=== PATIENT | female | born 1975 | race Caucasian/White ===

== ENCOUNTER 2021-04-05 11:00 | Inpatient (IN) | payer MEDICAID ==
[2021-04-05] VITALS (13 sets, daily range): BP systolic 100–155; BP diastolic 59–98
[~2021-04-05] VITALS: Ht 162.6 cm; Wt 91.2 kg
[2021-04-05] MEDS ORDERED: dextrose 50%-water 50ml dispensing syringe IV PRN ×2 (14:15→14:30)
[2021-04-05] MEDS ORDERED: thiamine 100mg/ml 2ml inj. IV ONE ×2 (14:15→14:30)
[2021-04-05] MEDS ORDERED: Neutra Phos packet PO PRN (14:30)
[2021-04-05] MEDS ORDERED: magnesium 2GM in 50ml NS 50 ML IV PRN (14:30)
[2021-04-05] MEDS ORDERED: magnesium 4gm in 100ml NS 100 ML IV PRN (14:30)
[2021-04-05] MEDS: K, MAG and/or Phos replacement - Verify level? MC SCH (14:30)
[2021-04-05] MEDS ORDERED: sodium phosphate inj. 15 MMOL in dextrose 5%-water 250 ML IV PRN (14:30)
[2021-04-05] MEDS ORDERED: haloperidol lactate 5mg/ml inj IM PRN ×2 (14:30)
[2021-04-05] MEDS ORDERED: magnesium Cl slow-release 64mg tablet PO PRN (14:30)
[2021-04-05] MEDS ORDERED: ondansetron/PF 4mg/2ml inj IV PRN (14:30)
[2021-04-05] MEDS ORDERED: potassium Cl 20 mEq SR tablet PO PRN (14:30)
[2021-04-05] MEDS ORDERED: LORazepam 2 mg/ml vial IV PRN ×2 (14:30)
[2021-04-05] MEDS ORDERED: sodium phosphate inj. 30 MMOL in dextrose 5%-water 250 ML IV PRN (14:30)
[2021-04-05] MEDS: LORazepam 2 mg/ml vial IV PRN ×3 (15:50→18:43)
[2021-04-05 15:52] LABS: MAGNESIUM 1.5 MG/DL (1.5-2.4)
[2021-04-05] MEDS: thiamine inj. 100 MG in normal saline 100ml IV soln 99 ML IV SCH (15:58)
[2021-04-05] MEDS: folic acid 1mg/0.2ml inj IV SCH (15:58)
[2021-04-05] MEDS ORDERED: THIAMINE IV SCH (16:00)
[2021-04-05] MEDS ORDERED: WATER IV SCH (16:00)
[2021-04-05] MEDS ORDERED: FOLIC ACID IV SCH (16:00)
[2021-04-05] MEDS ORDERED: chloestyramine/aspartame 4gm packet PO SCH (16:00)
[2021-04-05] MEDS ORDERED: DEXTROSE 5% IV SCH (16:00)
[2021-04-05 16:04] LABS: PHOSPHORUS 3.1 MG/DL (2.3-4.5); POTASSIUM 3.5 MMOL/L (3.5-5.1)
--- NOTE | 2021-04-05 16:27 | NUR ---
TF consult: Limited information at this time as pt just admit. Pending H&P, physical assessment, CMP, and PMH. Pt not intubated per bedside RN. Per EMR pt admit for hepatic encephalopathy, anasarca, hepatorenal, and illicit drugs. Corpak has been placed and KUB obtained, pending report at this time. High protein is requested in consult, TF recommendations will provide 1.4 g protein/kg and 30.7 kcal/kg. Pt receiving banana bag with routine Lactulose for EtOH. Will continue to follow closely. Recommendations: 1) Once Corpak confirmed in appropriate location, continuous Jevity 1.2 with goal rate of 80 mL/hr to provide: 2040 mL total volume/day, 2304 kcal, 107 g protein (1.4 g/kg), and 1549 mL water 2) Additional water flush per MD given unknown serum Na with elevated BNP and admit with anasarca/decreased liver function 3) Prealbumin q Wednesday/ 4) Daily weights Addendum: 04/05/21 at [address] Amended: Links added.
[2021-04-05] MEDS: MULTIVIT-MIN/FERROUS GLUCONATE 9 MG/15 ML LIQUID PO SCH (16:46)
[2021-04-05] MEDS: spironolactone 25 MG tablet PO SCH (16:47)
--- NOTE | 2021-04-05 18:18 | NUR ---
Problems reprioritized. Patient report given, questions answered & plan of care reviewed with STEFANI Mayorga.
[2021-04-05 19:22] LABS: ABG BASE EXCESS -3.4 mmol/L (-2.0-2.0); ABG HCO3 28.7 mmol/L (22.0-26.0); ABG OXYGEN SATURATION 85.7 % (94-97); ABG PCO2 (T) 102.8 mmHg (32.0-45.0); ABG PO2 (T) 73.3 mmHg (75.0-100.0); ALLEN'S TEST POSITIVE; FCOHb 0.7 % (0.0-3.9); FLOW 15 L/min; FMetHb 0.4 % (0.0-1.5); FO2Hb 84.8 % (94-97); PATIENT TEMPERATURE 37.4; TOTAL HEMOGLOBIN 11.6 G/dl (12.0-16.0)
[2021-04-05 19:46] LABS: HEMOGLOBIN 10.6 g/dl (12.0-16.0); MEAN PLATELET VOLUME 7.6 FL (7.4-10.4)
[2021-04-05 19:48] LABS: BASOPHILS # (AUTO) 0.3 X10'3 (0-0.2); BASOPHILS % (AUTO) 0.7 % (0-1); EOSINOPHILS # (AUTO) 0.3 X10'3 (0-0.9); EOSINOPHILS % (AUTO) 0.7 % (0-6); HEMATOCRIT 32.6 % (35.0-45.0); LYMPHOCYTES # (AUTO) 8.9 X10'3 (1.1-4.8); LYMPHOCYTES % (AUTO) 21.1 % (21-51); MEAN CORPUSCULAR HEMOGLOBIN 30.5 PG (27.0-31.0); MEAN CORPUSCULAR HGB CONC 32.5 g/dL (33.0-36.5); MEAN CORPUSCULAR VOLUME 93.9 FL (78-98); MONOCYTES # (AUTO) 2.7 X10'3 (0-0.9); MONOCYTES % (AUTO) 6.4 % (2-12); NEUTROPHILS # (AUTO) 30.1 X10'3 (1.8-7.7); NEUTROPHILS % (AUTO) 71.1 % (42-75); PLATELET COUNT 805 X10'3 (140-440); RED BLOOD COUNT 3.47 X10'6 (4.20-5.60); RED CELL DISTRIBUTION WIDTH 20.7 % (11.5-14.5)
[2021-04-05 19:53] LABS: WHITE BLOOD COUNT 42.3 X10'3 (4.5-11.0)
[2021-04-05 19:56] LABS: PARTIAL THROMBOPLASTIN TIME 37 SECONDS (22-32)
[2021-04-05] MEDS ORDERED: furosemide 40mg/4ml inj IV SCH (20:00)
[2021-04-05 20:07] LABS: LACTIC SEPSIS 1.9 MMOL/L (0.4-2.0)
[2021-04-05 20:12] LABS: ALANINE AMINOTRANSFERASE 35 U/L (12-78); ALBUMIN 2.7 G/DL (3.4-5.0); ANION GAP 6 (8-16); BILIRUBIN,TOTAL 20.4 MG/DL (0.1-1.0); BLOOD UREA NITROGEN 7 MG/DL (7-18); CALCIUM 8.6 MG/DL (8.5-10.1); CHLORIDE 103 MMOL/L (99-107); MAGNESIUM 1.7 MG/DL (1.5-2.4); SODIUM 139 MMOL/L (135-145); TOTAL CARBON DIOXIDE 30.2 MMOL/L (24-32)
[2021-04-05] MEDS: lactulose 20gm/30ml cup PO SCH (20:18)
[2021-04-05] MEDS: rifaximin 550mg tablet PO SCH (20:18)
[2021-04-05] MEDS: pantoprazole 40 MG vial IV SCH (20:18)
[2021-04-05 20:37] LABS: ALKALINE PHOSPHATASE 273 IU/L (46-116); ASPARTATE AMINO TRANSFERASE 148 U/L (10-37)
[2021-04-05 20:40] LABS: ALBUMIN/GLOBULIN RATIO 0.7 (1.1-1.5); BUN/CREATININE RATIO 15.2 (6.6-38.0); CREATININE 0.46 MG/DL (0.40-0.90); GLUCOSE 127 MG/DL (70-104); PHOSPHORUS 4.3 MG/DL (2.3-4.5); POTASSIUM 4.3 MMOL/L (3.5-5.1); TOTAL PROTEIN 6.6 G/DL (6.4-8.2); eGFR > 90 ML/MIN
[2021-04-05 20:50] LABS: ABG BASE EXCESS -0.8 mmol/L (-2.0-2.0); ABG HCO3 26.4 mmol/L (22.0-26.0); ABG OXYGEN SATURATION 93.6 % (94-97); ABG PCO2 (T) 57.8 mmHg (32.0-45.0); ABG PO2 (T) 81.8 mmHg (75.0-100.0); ALLEN'S TEST POSITIVE; FCOHb 0.8 % (0.0-3.9); FMetHb 0.4 % (0.0-1.5); FO2Hb 92.5 % (94-97); PATIENT TEMPERATURE 37.9; RESPIRATORY RATE 10 b/min; TIDAL VOLUME 530 mL; TOTAL HEMOGLOBIN 11.3 G/dl (12.0-16.0)
[2021-04-05 21:29] LABS: ANISOCYTOSIS 3+; PLATELET ESTIMATE INCREASED; TOTAL CELLS COUNTED 100
[2021-04-05 21:30] LABS: LARGE PLATELETS FEW; POLYCHROMASIA FEW
--- NOTE | 2021-04-05 21:30 | NUR ---
TUBE FEED CHANGED per MD Menon tube feed is to be changed to Vital AF.
[2021-04-05] MEDS: cefepime 1GM in D5W 50mL 50 ML IV SCH (22:33)
[2021-04-05] MEDS: albumin (human) 25% 100 ML IV solution IV SCH (23:25)
[2021-04-06] VITALS (23 sets, daily range): BP systolic 101–127; BP diastolic 54–84
[2021-04-06] MEDS: spironolactone 25 MG tablet PO SCH ×4 (00:05→23:08)
[2021-04-06] MEDS: furosemide 40mg/4ml inj IV SCH ×4 (00:17→23:07)
[2021-04-06] MEDS: cefepime 1GM in D5W 50mL 50 ML IV SCH ×4 (00:17→23:07)
[2021-04-06] MEDS: lactulose 20gm/30ml cup PO SCH ×4 (01:05→19:46)
[2021-04-06 03:01] LABS: BASOPHILS # (AUTO) 0.1 X10'3 (0-0.2); BASOPHILS % (AUTO) 0.4 % (0-1); EOSINOPHILS # (AUTO) 0.1 X10'3 (0-0.9); EOSINOPHILS % (AUTO) 0.3 % (0-6); HEMATOCRIT 26.3 % (35.0-45.0); HEMOGLOBIN 8.7 g/dl (12.0-16.0); LYMPHOCYTES % (AUTO) 12.9 % (21-51); MEAN CORPUSCULAR HEMOGLOBIN 30.4 PG (27.0-31.0); MEAN CORPUSCULAR HGB CONC 33.2 g/dL (33.0-36.5); MEAN CORPUSCULAR VOLUME 91.7 FL (78-98); MEAN PLATELET VOLUME 7.5 FL (7.4-10.4); MONOCYTES # (AUTO) 0.9 X10'3 (0-0.9); MONOCYTES % (AUTO) 5.8 % (2-12); NEUTROPHILS # (AUTO) 12.7 X10'3 (1.8-7.7); NEUTROPHILS % (AUTO) 80.6 % (42-75); PLATELET COUNT 373 X10'3 (140-440); RED BLOOD COUNT 2.86 X10'6 (4.20-5.60); RED CELL DISTRIBUTION WIDTH 19.8 % (11.5-14.5); WHITE BLOOD COUNT 15.8 X10'3 (4.5-11.0)
[2021-04-06 03:06] LABS: PARTIAL THROMBOPLASTIN TIME 38 SECONDS (22-32)
[2021-04-06 03:12] LABS: ALANINE AMINOTRANSFERASE 31 U/L (12-78); ALBUMIN 2.6 G/DL (3.4-5.0); ALKALINE PHOSPHATASE 220 IU/L (46-116); BILIRUBIN,TOTAL 17.1 MG/DL (0.1-1.0); BLOOD UREA NITROGEN 8 MG/DL (7-18); CALCIUM 8.5 MG/DL (8.5-10.1); CHLORIDE 103 MMOL/L (99-107); MAGNESIUM 1.5 MG/DL (1.5-2.4); TOTAL CARBON DIOXIDE 27.9 MMOL/L (24-32)
[2021-04-06 03:37] LABS: ASPARTATE AMINO TRANSFERASE 126 U/L (10-37)
[2021-04-06 03:40] LABS: ALBUMIN/GLOBULIN RATIO 0.8 (1.1-1.5); ANION GAP 7 (8-16); BUN/CREATININE RATIO 13.8 (6.6-38.0); CREATININE 0.58 MG/DL (0.40-0.90); GLUCOSE 129 MG/DL (70-104); PHOSPHORUS 2.4 MG/DL (2.3-4.5); POTASSIUM 3.1 MMOL/L (3.5-5.1); SODIUM 138 MMOL/L (135-145); TOTAL PROTEIN 5.7 G/DL (6.4-8.2); eGFR > 90 ML/MIN
[2021-04-06 03:52] LABS: CLARITY,URINE CLEAR (Clear); COLOR,URINE YELLOW (Yellow); GLUCOSE, URINE NEGATIVE (Neg); KETONES,URINE NEGATIVE (Neg); LEUKOCYTE ESTERASE ,URINE NEGATIVE (Neg); NITRITES, URINE NEGATIVE (Neg); OCCULT BLOOD,URINE MODERATE (Neg); PROTEIN,URINE NEGATIVE (Neg); UROBILINOGEN,URINE 0.2 E.U/dL (0.2-1.0)
[2021-04-06 04:04] LABS: UA COLLECTION TYPE NON-SPECIFIED
[2021-04-06 04:06] LABS: BACTERIA,URINE FEW /HPF (Neg); SQUAMOUS EPITHELIAL CELL,UR FEW /LPF (FEW); WBC,URINE NONE SEEN /HPF (0-4)
[2021-04-06] MEDS: potassium Cl 20 mEq SR tablet PO PRN ×4 (04:39→12:09)
--- NOTE | 2021-04-06 06:22 | NUR ---
Problems reprioritized. Patient report given, questions answered & plan of care reviewed with Liz KO.
[2021-04-06] MEDS: thiamine inj. 100 MG in normal saline 100ml IV soln 99 ML IV SCH (07:45)
[2021-04-06] MEDS: albumin (human) 25% 100 ML IV solution IV SCH (07:45)
[2021-04-06] MEDS: MULTIVIT-MIN/FERROUS GLUCONATE 9 MG/15 ML LIQUID PO SCH (07:47)
[2021-04-06] MEDS: pantoprazole 40 MG vial IV SCH (07:47)
[2021-04-06] MEDS ORDERED: FOLIC ACID IV SCH (08:00)
[2021-04-06] MEDS ORDERED: pantoprazole 40 MG vial IV SCH (08:00)
[2021-04-06] MEDS ORDERED: THIAMINE IV SCH (08:00)
[2021-04-06] MEDS ORDERED: WATER IV SCH (08:00)
[2021-04-06] MEDS ORDERED: DEXTROSE 5% IV SCH (08:00)
[2021-04-06] MEDS: rifaximin 550mg tablet PO SCH ×2 (08:12→19:46)
[2021-04-06] MEDS: K, MAG and/or Phos replacement - Verify level? MC SCH (08:13)
[2021-04-06] MEDS: diazepam inj 5 MG/ML inj. IV PRN ×2 (09:11→13:58)
[2021-04-06] MEDS: folic acid 1mg/0.2ml inj IV SCH (09:17)
--- NOTE | 2021-04-06 09:20 | NUR ---
F/u 04/06: Prior RD TF recs cancelled and new TF diet order for Vital AF at 80ml/hr goal placed by night MD for higher protein/kcals (1.92g/kg protein & 30.7kcals/kg) daily provision. Will monitor for new TF tolerance and adjustment needs in case overfeeding as medically indicated. Recommendations: 1) Continuous TF via Corpak per night MD order using Vital AF at 80 mL/hr to provide: 2040 mL total volume/day, 2304 kcal(30.7kcal/kg), 144g protein (1.92g/kg), and 1555mL water. 2) Additional water flush per MD; serum Na 138 with anasarca/decreased liver function 3) Prealbumin q Wednesday/; daily wts 4) routine thiamin, folic, MVI for etoh hx per MD 5) routine bowel care; routine lactulose per MD 6) IF concerns for too much protein provisions consider initial RD recs for continuous TF using Jevity 1.2 at 80ml/hr goal; would provide 1920ml volume 2304 kcals, 1555ml free water, and 107g protein (1.42g/kg). Addendum: 04/06/21 at [address] Amended: Links added.
[2021-04-06] MEDS ORDERED: AMOX-580 PO (10:55)
[2021-04-06] MEDS ORDERED: LACT10SO32 PO (10:56)
[2021-04-06] MEDS: LORazepam 2 mg/ml vial IV PRN ×3 (16:19→17:53)
[2021-04-06] MEDS: levoTHYROXINE sod inj. 100mcg/5 ml vial IV SCH (17:21)
--- NOTE | 2021-04-06 17:27 | NUR ---
AT 1530 PATIENT WAS PUT ON 6L NC, WAS TOLERATING AT FIRST. AN HOUR AFTER PATIENT BECAME INCREASINGLY AGITATED AND RESTLESS AND TACHYPNEIC IN THE 50'S AND TACHYCARDIC IN THE LOW 110'S, PATIENT SWITCHED BACK TO BIPAP/AVAPS AT 1700.
[2021-04-06] MEDS: lactobacillus rhamnosus 10,000 MMU CELLS/CAPSULE PO SCH (19:46)
--- NOTE | 2021-04-06 21:58 | NUR ---
pt report received from STEFANI Hill. Pt has been assessed and documented per unit protocol, she is on a Bipap with an FIO2-40%, She has a Chiang and a rectal tube; both of which has been assessed and cleaned. Pt is restrained with assessment being done every 2 hours. she has been wiped down and made comfortable in bed with pillows. pt has reached goal of 80ml/hr on her tube feed (vital HF). Further monitoring ongoing per unit protocol.
[2021-04-07] VITALS (25 sets, daily range): BP systolic 105–143; BP diastolic 63–92
[2021-04-07 03:49] LABS: ALANINE AMINOTRANSFERASE 26 U/L (12-78); ALBUMIN 2.5 G/DL (3.4-5.0); ALKALINE PHOSPHATASE 257 IU/L (46-116); ANION GAP 8 (8-16); BILIRUBIN,TOTAL 17.4 MG/DL (0.1-1.0); BLOOD UREA NITROGEN 8 MG/DL (7-18); BUN/CREATININE RATIO 12.3 (6.6-38.0); CALCIUM 8.5 MG/DL (8.5-10.1); CHLORIDE 104 MMOL/L (99-107); CREATININE 0.65 MG/DL (0.40-0.90); MAGNESIUM 1.2 MG/DL (1.5-2.4); PREALBUMIN 7.3 MG/DL (19-36); SODIUM 143 MMOL/L (135-145); eGFR > 90 ML/MIN
[2021-04-07 03:53] LABS: ALBUMIN/GLOBULIN RATIO 0.7 (1.1-1.5); ASPARTATE AMINO TRANSFERASE 126 U/L (10-37); GLUCOSE 154 MG/DL (70-104); PHOSPHORUS 1.3 MG/DL (2.3-4.5); TOTAL PROTEIN 5.9 G/DL (6.4-8.2)
[2021-04-07 03:59] LABS: POTASSIUM 2.9 MMOL/L (3.5-5.1)
[2021-04-07] MEDS ORDERED: potassium Cl 20 mEq/100mL bag IV ONE ×4 (04:49→04:50)
--- NOTE | 2021-04-07 06:14 | NUR ---
Problems reprioritized. Patient report given, questions answered & plan of care reviewed with STEFANI Agrawal.
[2021-04-07] MEDS: lactobacillus rhamnosus 10,000 MMU CELLS/CAPSULE PO SCH ×2 (07:20→19:41)
[2021-04-07] MEDS: MULTIVIT-MIN/FERROUS GLUCONATE 9 MG/15 ML LIQUID PO SCH (07:20)
[2021-04-07] MEDS: lactulose 20gm/30ml cup PO SCH ×2 (07:20→19:42)
[2021-04-07] MEDS: furosemide 40mg/4ml inj IV SCH ×3 (07:20→23:52)
[2021-04-07] MEDS: spironolactone 25 MG tablet PO SCH ×3 (07:20→23:53)
[2021-04-07] MEDS: pantoprazole 40 MG vial IV SCH (07:20)
[2021-04-07] MEDS: folic acid 1mg/0.2ml inj IV SCH (07:22)
[2021-04-07] MEDS: cefepime 1GM in D5W 50mL 50 ML IV SCH ×3 (07:23→23:53)
[2021-04-07] MEDS: potassium Cl 20mEq/100mL bag 100 ML IV SCH ×6 (07:26→14:42)
[2021-04-07] MEDS: K, MAG and/or Phos replacement - Verify level? MC SCH (07:51)
[2021-04-07] MEDS: levoTHYROXINE sod inj. 100mcg/5 ml vial IV SCH (08:39)
[2021-04-07] MEDS: rifaximin 550mg tablet PO SCH ×2 (08:39→19:41)
[2021-04-07] MEDS ORDERED: diatrozoate meglu/diatrozoate sod (37% iodine) 120ML oral solution RC ONE (08:50)
[2021-04-07] MEDS: thiamine inj. 100 MG in normal saline 100ml IV soln 99 ML IV SCH (08:52)
[2021-04-07] MEDS ORDERED: diatr meglu/diatrizoate 30ml oral sol.-(3 dose) bottle PO ONE (09:45)
--- NOTE | 2021-04-07 10:38 | NUR ---
Pt's mother at bedside and stayed for rounds. Per Jossy, daily CXR, ABGs, CBC diff, and a spot BUN Addendum: 04/07/21 at 1040 by Ximena Castellon RN Per Jossy, order paracentesis
--- NOTE | 2021-04-07 11:30 | NUR ---
F/u 04/07: Noted pt K 2.9, Mg1.2, Phos 1.3 likely refeeding continuing TF at goal and receiving electrolyte replacements per protocol per RN. Addendum: 04/07/21 at [address] Amended: Links added.
[2021-04-07 11:50] LABS: ALANINE AMINOTRANSFERASE 32 U/L (12-78); ALBUMIN 2.5 G/DL (3.4-5.0); ALKALINE PHOSPHATASE 270 IU/L (46-116); ANION GAP 9 (8-16); BILIRUBIN,TOTAL 17.5 MG/DL (0.1-1.0); BLOOD UREA NITROGEN 8 MG/DL (7-18); CALCIUM 8.9 MG/DL (8.5-10.1); CHLORIDE 104 MMOL/L (99-107); SODIUM 143 MMOL/L (135-145)
[2021-04-07] MEDS: chloestyramine/aspartame 4gm packet PO SCH ×2 (12:10→15:29)
[2021-04-07 12:13] LABS: ASPARTATE AMINO TRANSFERASE 148 U/L (10-37)
[2021-04-07 12:14] LABS: ALBUMIN/GLOBULIN RATIO 0.7 (1.1-1.5); BUN/CREATININE RATIO 14.5 (6.6-38.0); CREATININE 0.55 MG/DL (0.40-0.90); GLUCOSE 133 MG/DL (70-104); TOTAL PROTEIN 6.2 G/DL (6.4-8.2); eGFR > 90 ML/MIN
[2021-04-07 12:15] LABS: POTASSIUM 3.2 MMOL/L (3.5-5.1)
[2021-04-07 12:22] LABS: ABG BASE EXCESS 5.8 mmol/L (-2.0-2.0); ABG HCO3 28.7 mmol/L (22.0-26.0); ABG OXYGEN SATURATION 91.5 % (94-97); ABG PCO2 (T) 35.7 mmHg (32.0-45.0); ABG PO2 (T) 56.2 mmHg (75.0-100.0); ALLEN'S TEST POSITIVE; FCOHb 0.7 % (0.0-3.9); FLOW 2 L/min; FMetHb 0.2 % (0.0-1.5); FO2Hb 90.7 % (94-97); PATIENT TEMPERATURE 37.2; TOTAL HEMOGLOBIN 10.1 G/dl (12.0-16.0)
[2021-04-07] MEDS ORDERED: iohexol 300mg/ml 100ml inj. ONE (16:02)
--- NOTE | 2021-04-07 18:10 | NUR ---
Problems reprioritized. Patient report given, questions answered & plan of care reviewed with Dayanna Shaw RN.
--- NOTE | 2021-04-07 18:15 | NUR ---
Patient in room CICU 2013. I have received report from Ximena and Tanja Costa and had the opportunity to ask questions and assume patient care. Sitter at patient's bedside. Will continue to monitor patient.
[2021-04-07 19:22] LABS: HEMOGLOBIN 9.2 g/dl (12.0-16.0)
[2021-04-07 19:23] LABS: ALBUMIN 2.3 G/DL (3.4-5.0); ANION GAP 7 (8-16); BASOPHILS # (AUTO) 0.2 X10'3 (0-0.2); BASOPHILS % (AUTO) 1.2 % (0-1); BLOOD UREA NITROGEN 8 MG/DL (7-18); CALCIUM 8.7 MG/DL (8.5-10.1); CHLORIDE 104 MMOL/L (99-107); EOSINOPHILS # (AUTO) 0.1 X10'3 (0-0.9); EOSINOPHILS % (AUTO) 0.5 % (0-6); HEMATOCRIT 27.7 % (35.0-45.0); LYMPHOCYTES # (AUTO) 1.8 X10'3 (1.1-4.8); LYMPHOCYTES % (AUTO) 12.4 % (21-51); MAGNESIUM 1.9 MG/DL (1.5-2.4); MEAN CORPUSCULAR HEMOGLOBIN 30.5 PG (27.0-31.0); MEAN CORPUSCULAR HGB CONC 33.1 g/dL (33.0-36.5); MEAN PLATELET VOLUME 7.7 FL (7.4-10.4); MONOCYTES # (AUTO) 0.9 X10'3 (0-0.9); NEUTROPHILS # (AUTO) 11.7 X10'3 (1.8-7.7); NEUTROPHILS % (AUTO) 79.9 % (42-75); PLATELET COUNT 341 X10'3 (140-440); RED BLOOD COUNT 3.02 X10'6 (4.20-5.60); RED CELL DISTRIBUTION WIDTH 20.8 % (11.5-14.5); SODIUM 142 MMOL/L (135-145); TOTAL CARBON DIOXIDE 30.6 MMOL/L (24-32); WHITE BLOOD COUNT 14.6 X10'3 (4.5-11.0)
[2021-04-07 19:28] LABS: GLUCOSE 132 MG/DL (70-104); POTASSIUM 3.1 MMOL/L (3.5-5.1)
[2021-04-07 19:29] LABS: BUN/CREATININE RATIO 13.8 (6.6-38.0); CREATININE 0.58 MG/DL (0.40-0.90); PHOSPHORUS 2.5 MG/DL (2.3-4.5); eGFR > 90 ML/MIN
--- NOTE | 2021-04-07 20:00 | NUR ---
Call placed to PT's Mother to provide update per Dr. Fenton's request. There was not an answer. Message left and awaiting a call back.
[2021-04-07] MEDS ORDERED: POTASSIUM BICARB 20meq eff tab 20 MEQ TABLET.EFF PO PRN (20:21)
[2021-04-07] MEDS: POTASSIUM BICARB 20meq eff tab 20 MEQ TABLET.EFF PO PRN (20:35)
[2021-04-07 21:31] LABS: ANISOCYTOSIS 3+; ELLIPTOCYTES FEW; HYPOCHROMASIA 1+; PLATELET ESTIMATE NORMAL; POLYCHROMASIA FEW; STOMATOCYTES FEW; TEAR DROP CELLS FEW
[2021-04-08] VITALS (25 sets, daily range): BP systolic 109–130; BP diastolic 65–96
[2021-04-08] MEDS: POTASSIUM BICARB 20meq eff tab 20 MEQ TABLET.EFF PO PRN ×2 (00:06→04:41)
[2021-04-08 02:35] LABS: BASOPHILS # (AUTO) 0.1 X10'3 (0-0.2); BASOPHILS % (AUTO) 0.7 % (0-1); EOSINOPHILS # (AUTO) 0.1 X10'3 (0-0.9); EOSINOPHILS % (AUTO) 0.6 % (0-6); HEMATOCRIT 27.2 % (35.0-45.0); LYMPHOCYTES # (AUTO) 1.9 X10'3 (1.1-4.8); LYMPHOCYTES % (AUTO) 13.1 % (21-51); MEAN CORPUSCULAR HEMOGLOBIN 30.4 PG (27.0-31.0); MEAN CORPUSCULAR HGB CONC 33.2 g/dL (33.0-36.5); MEAN CORPUSCULAR VOLUME 91.8 FL (78-98); MEAN PLATELET VOLUME 7.3 FL (7.4-10.4); MONOCYTES % (AUTO) 6.9 % (2-12); NEUTROPHILS # (AUTO) 11.2 X10'3 (1.8-7.7); NEUTROPHILS % (AUTO) 78.7 % (42-75); PLATELET COUNT 324 X10'3 (140-440); RED BLOOD COUNT 2.96 X10'6 (4.20-5.60); RED CELL DISTRIBUTION WIDTH 20.8 % (11.5-14.5); WHITE BLOOD COUNT 14.2 X10'3 (4.5-11.0)
[2021-04-08 02:41] LABS: PARTIAL THROMBOPLASTIN TIME 35 SECONDS (22-32)
[2021-04-08 02:44] LABS: ALANINE AMINOTRANSFERASE 31 U/L (12-78); ALBUMIN 2.2 G/DL (3.4-5.0); ALKALINE PHOSPHATASE 288 IU/L (46-116); ANION GAP 8 (8-16); BILIRUBIN,TOTAL 17.6 MG/DL (0.1-1.0); BLOOD UREA NITROGEN 7 MG/DL (7-18); BUN/CREATININE RATIO 11.5 (6.6-38.0); CALCIUM 8.3 MG/DL (8.5-10.1); CHLORIDE 104 MMOL/L (99-107); CREATININE 0.61 MG/DL (0.40-0.90); MAGNESIUM 1.7 MG/DL (1.5-2.4); SODIUM 143 MMOL/L (135-145); eGFR > 90 ML/MIN
[2021-04-08 02:47] LABS: ALBUMIN/GLOBULIN RATIO 0.6 (1.1-1.5); ASPARTATE AMINO TRANSFERASE 170 U/L (10-37); GLUCOSE 145 MG/DL (70-104); PHOSPHORUS 2.2 MG/DL (2.3-4.5); POTASSIUM 3.3 MMOL/L (3.5-5.1)
[2021-04-08 03:41] LABS: ANISOCYTOSIS 3+; ELLIPTOCYTES FEW; HYPOCHROMASIA 1+; PLATELET ESTIMATE NORMAL; POLYCHROMASIA FEW; STOMATOCYTES FEW; TEAR DROP CELLS FEW; TOTAL CELLS COUNTED 100
[2021-04-08] MEDS ORDERED: potassium phosphate inj 30 MMOL in normal saline 500ml IV soln 500 ML IV ONE (03:50)
[2021-04-08] MEDS: lactulose 20gm/30ml cup PO SCH ×2 (04:30→07:28)
--- NOTE | 2021-04-08 06:17 | NUR ---
Problems reprioritized. Patient report given, questions answered & plan of care reviewed with Tanja KO.
--- NOTE | 2021-04-08 06:58 | NUR ---
Patient in room [facility] 2013. I have received report from Steven RNS and had the opportunity to ask questions and assume patient care. Addendum: 04/08/21 at 0659 by Tanja Carreon RN Amended: Links added.
[2021-04-08] MEDS: furosemide 40mg/4ml inj IV SCH ×3 (07:27→23:07)
[2021-04-08] MEDS: pantoprazole 40 MG vial IV SCH (07:28)
[2021-04-08] MEDS: lactobacillus rhamnosus 10,000 MMU CELLS/CAPSULE PO SCH (07:28)
[2021-04-08] MEDS: MULTIVIT-MIN/FERROUS GLUCONATE 9 MG/15 ML LIQUID PO SCH (07:28)
[2021-04-08] MEDS: cefepime 1GM in D5W 50mL 50 ML IV SCH (07:28)
[2021-04-08] MEDS: rifaximin 550mg tablet PO SCH (07:28)
[2021-04-08] MEDS: spironolactone 25 MG tablet PO SCH (07:28)
[2021-04-08] MEDS: thiamine inj. 100 MG in normal saline 100ml IV soln 99 ML IV SCH (07:29)
[2021-04-08] MEDS: levoTHYROXINE sod inj. 100mcg/5 ml vial IV SCH (07:29)
[2021-04-08] MEDS: folic acid 1mg/0.2ml inj IV SCH (07:41)
[2021-04-08] MEDS: K, MAG and/or Phos replacement - Verify level? MC SCH (07:48)
--- NOTE | 2021-04-08 08:39 | NUR ---
Pt. constantly is incontinent of liquid stool. Attempted to palace rectal tube but it would not stay in pt. Multiple attempts have been made on previous shifts. Andrea area severely excoriated and bleeding in some areas. WOC consult ordered. RN contacted [facility] RN who provided barrier spray and Triad cream. Pt. has soiled two gowns so far this shift. Will provide andrea care at least q1 hour. Pt. awake and calling out for water, coffee and her mom. Pt's mother called for an update and will be here later to visit pt.
--- NOTE | 2021-04-08 11:02 | NUR ---
Mom at bedside. Talking with Dr. Fenton re. patient.
--- NOTE | 2021-04-08 11:04 | NUR ---
ROUNDS NOTE: DC Ativan, abx. and Lactulose, give Lomotil, change tube feeding formula for diarrhea.
[2021-04-08] MEDS: chloestyramine/aspartame 4gm packet PO SCH (11:34)
--- NOTE | 2021-04-08 11:40 | NUR ---
Pt.'s mother asked that the restraints be taken off while she was in the room with pt. RN asked charge account identification clerk who stated as long as the mother and sitter were both in the room it was ok. The restraints were off for approx. 5 minutes when pt. grabbed her Corpak with her right hand and attempted to pull it out while the mother was looking down and typing on her cell phone. The sitter was able to pry the Corpak out of pt's hand. Restraints were placed back on pt. and the mother was informed that she needed to keep her eyes on pt. constantly if she were to demand pt's be taken off. Mother left shortly after.
[2021-04-08] MEDS: diphenoxylate/atropine tablet (Lomotil) PO PRN (11:48)
--- NOTE | 2021-04-08 12:22 | NUR ---
Reassessment: Pt continues tolerating TF at goal rate with GRV WNL however having high stool output and unable to keep a rectal tube in place per universal winding machine operator. At critical care rounds MD requested formula change to less elemental formula and to decrease protein g/kg. Recommend initial RD TF recs using Jevity 1.2 with goal rate of 80 mL/hr to provide 1.4 g protein/kg and additional sCFOS for bowel function. Routine Lactulose to be discontinued today and PRN Lomotil added to med list. Noted that ST has been consulted for BSS. Recommend continuing TF via Corpak until pt able to consistently tolerate average PO intake greater than 65% of meals. Pt continues receiving PRN electrolyte replacement. Will continue to follow closely and make recommendations as appropriate. Recommendations: 1) Continuous TF via Corpak using Jevity 1.2 at 80 mL/hr to provide: 2040 mL total volume/day, 2304 kcal, 107 g protein (1.4 g/kg), and 1549 mL water 2) Additional water flush per MD; with anasarca/decreased liver function 3) Prealbumin q Wednesday/; daily wts 4) Routine thiamine, folic, and MVI for EtOH hx per MD 5) Bowel care per MD 6) Diet advancement per ST pending BSS; consider continuing TF until PO intake stable with pt tolerating average PO intake greater than 65% of meals Addendum: 04/08/21 at [address] Amended: Links added.
[2021-04-08] MEDS ORDERED: Neutra Phos packet CORPAK PRN (13:42)
[2021-04-08] MEDS ORDERED: spironolactone 25 MG tablet CORPAK SCH (13:42)
[2021-04-08] MEDS ORDERED: MULTIVIT-MIN/FERROUS GLUCONATE 9 MG/15 ML LIQUID CORPAK SCH (13:42)
[2021-04-08] MEDS ORDERED: lactobacillus rhamnosus 10,000 MMU CELLS/CAPSULE CORPAK SCH (13:42)
[2021-04-08] MEDS ORDERED: rifaximin 550mg tablet CORPAK SCH (13:43)
[2021-04-08] MEDS ORDERED: POTASSIUM BICARB 20meq eff tab 20 MEQ TABLET.EFF CORPAK PRN ×2 (13:43)
--- NOTE | 2021-04-08 14:39 | NUR ---
TF Consult: Pt advanced to pureed/nectar thick diet per BUTTON [employer]ER recs today w/ NG feeds now to be nocturnal [id number] per supervisor riprap placing request. MD requests ONS TIDWM while PO meals pending at this time; noted ensure high protein TIDWM ordered in EMR w/ pt to receive first WS today. Updated Nocturnal TF recs below given pt needs in consideration w/ current PO/ONS orders. Will monitor for TF tolerance and PO/ONS intake hx for TF adjustment needs as medically indicated. Recommendations: 1) Continue pureed/nectar thick diet per BUTTON [employer]ER recs; ensure high protein TIDWM per MD request 2) Per MD; Nocturnal TF via Corpak [id number] using Jevity 1.2 at 115mL/hr to provide: 1380mL total volume/day, 1656 kcals, 77g protein, and 1118mL water. Initiate at 115ml/hr goal rate each night. 3) Additional water flush per MD; with anasarca/decreased liver function 4) Prealbumin q Wednesday/; daily wts 5) Routine thiamine, folic, and MVI for EtOH hx per MD 6) Bowel care per MD 7) monitor for nocturnal TF tolerance; consider continuing TF until PO intake stable with pt tolerating average greater than 65% of meals Addendum: 04/08/21 at [address] Amended: Links added.
--- NOTE | 2021-04-08 15:01 | NUR ---
Attempted to obtain josé op report from [facility] for Dr. Fenton. Their medical records staff member called and stated there are no records of a josé surgery there. Will try [facility].
[2021-04-08] MEDS ORDERED: POTASSIUM BICARB 20meq eff tab 20 MEQ TABLET.EFF NG PRN (15:05)
[2021-04-08] MEDS ORDERED: Neutra Phos packet NG PRN (15:05)
[2021-04-08] MEDS: spironolactone 25 MG tablet NG SCH ×2 (16:08→23:07)
[2021-04-08] MEDS: chloestyramine/aspartame 4gm packet CORPAK SCH (16:08)
[2021-04-08] MEDS: lactose-reduced food (Ensure High Protein) 237ml bottle PO SCH (17:34)
--- NOTE | 2021-04-08 17:58 | NUR ---
Problems reprioritized. Patient report given, questions answered & plan of care reviewed with noc RN.
[2021-04-08] MEDS: lactobacillus rhamnosus 10,000 MMU CELLS/CAPSULE NG SCH (19:24)
[2021-04-08] MEDS: rifaximin 550mg tablet NG SCH (19:24)
[2021-04-09] VITALS (19 sets, daily range): BP systolic 108–137; BP diastolic 58–85
[2021-04-09 03:27] LABS: PARTIAL THROMBOPLASTIN TIME 37 SECONDS (22-32)
[2021-04-09 03:29] LABS: ALANINE AMINOTRANSFERASE 40 U/L (12-78); ALBUMIN 2.1 G/DL (3.4-5.0); ALKALINE PHOSPHATASE 310 IU/L (46-116); ANION GAP 5 (8-16); BASOPHILS # (AUTO) 0.1 X10'3 (0-0.2); BASOPHILS % (AUTO) 0.7 % (0-1); BILIRUBIN,TOTAL 17.2 MG/DL (0.1-1.0); BLOOD UREA NITROGEN 12 MG/DL (7-18); CALCIUM 8.5 MG/DL (8.5-10.1); CHLORIDE 105 MMOL/L (99-107); EOSINOPHILS # (AUTO) 0.1 X10'3 (0-0.9); EOSINOPHILS % (AUTO) 0.5 % (0-6); HEMATOCRIT 26.9 % (35.0-45.0); LYMPHOCYTES # (AUTO) 1.9 X10'3 (1.1-4.8); LYMPHOCYTES % (AUTO) 12.3 % (21-51); MAGNESIUM 1.4 MG/DL (1.5-2.4); MEAN CORPUSCULAR HEMOGLOBIN 30.9 PG (27.0-31.0); MEAN CORPUSCULAR HGB CONC 33.5 g/dL (33.0-36.5); MEAN CORPUSCULAR VOLUME 92.3 FL (78-98); MEAN PLATELET VOLUME 7.6 FL (7.4-10.4); MONOCYTES # (AUTO) 0.9 X10'3 (0-0.9); MONOCYTES % (AUTO) 5.9 % (2-12); NEUTROPHILS # (AUTO) 12.2 X10'3 (1.8-7.7); NEUTROPHILS % (AUTO) 80.6 % (42-75); PLATELET COUNT 288 X10'3 (140-440); RED BLOOD COUNT 2.92 X10'6 (4.20-5.60); RED CELL DISTRIBUTION WIDTH 21.1 % (11.5-14.5); SODIUM 141 MMOL/L (135-145); TOTAL CARBON DIOXIDE 31.3 MMOL/L (24-32); WHITE BLOOD COUNT 15.1 X10'3 (4.5-11.0)
[2021-04-09 03:35] LABS: ALBUMIN/GLOBULIN RATIO 0.5 (1.1-1.5); ASPARTATE AMINO TRANSFERASE 165 U/L (10-37); BUN/CREATININE RATIO 18.2 (6.6-38.0); CREATININE 0.66 MG/DL (0.40-0.90); GLUCOSE 149 MG/DL (70-104); PHOSPHORUS 2.7 MG/DL (2.3-4.5); POTASSIUM 3.5 MMOL/L (3.5-5.1); TOTAL PROTEIN 6.2 G/DL (6.4-8.2); eGFR > 90 ML/MIN
[2021-04-09 04:11] LABS: TOTAL CELLS COUNTED 100
[2021-04-09 04:12] LABS: ANISOCYTOSIS 3+; ELLIPTOCYTES FEW; PLATELET ESTIMATE NORMAL; POLYCHROMASIA FEW; SCHISTOCYTES FEW; TARGET CELLS FEW; TEAR DROP CELLS FEW
[2021-04-09] MEDS ORDERED: magnesium 2GM in 50ml NS 50 ML IV ONE (05:00)
[2021-04-09] MEDS: K, MAG and/or Phos replacement - Verify level? MC SCH (07:20)
[2021-04-09] MEDS: pantoprazole 40 MG vial IV SCH (07:37)
[2021-04-09] MEDS: furosemide 40mg/4ml inj IV SCH ×2 (07:37→16:49)
[2021-04-09] MEDS: lactobacillus rhamnosus 10,000 MMU CELLS/CAPSULE NG SCH ×2 (07:38→19:45)
[2021-04-09] MEDS: levoTHYROXINE sod inj. 100mcg/5 ml vial IV SCH (07:38)
[2021-04-09] MEDS: spironolactone 25 MG tablet NG SCH ×2 (07:38→16:49)
[2021-04-09] MEDS: rifaximin 550mg tablet NG SCH (07:38)
[2021-04-09] MEDS: thiamine inj. 100 MG in normal saline 100ml IV soln 99 ML IV SCH (07:39)
[2021-04-09] MEDS: MULTIVIT-MIN/FERROUS GLUCONATE 9 MG/15 ML LIQUID NG SCH (07:40)
[2021-04-09] MEDS: lactose-reduced food (Ensure High Protein) 237ml bottle PO SCH ×3 (08:00→18:00)
[2021-04-09] MEDS: folic acid 1mg/0.2ml inj IV SCH (08:00)
[2021-04-09] MEDS: chloestyramine/aspartame 4gm packet CORPAK SCH ×2 (11:00→16:00)
[2021-04-09 13:05] LABS: CLARITY,URINE CLEAR (Clear); COLOR,URINE YELLOW (Yellow); GLUCOSE, URINE NEGATIVE (Neg); KETONES,URINE NEGATIVE (Neg); LEUKOCYTE ESTERASE ,URINE TRACE (Neg); NITRITES, URINE NEGATIVE (Neg); OCCULT BLOOD,URINE MODERATE (Neg); PROTEIN,URINE TRACE mg/dl (Neg); UROBILINOGEN,URINE 0.2 E.U/dL (0.2-1.0)
[2021-04-09 13:25] LABS: UA COLLECTION TYPE NON-SPECIFIED
[2021-04-09 13:28] LABS: WBC,URINE 0-4 /HPF (0-4)
[2021-04-09 13:29] LABS: BACTERIA,URINE NONE SEEN /HPF (Neg); MUCUS STRANDS NONE SEEN /LPF (Neg); SQUAMOUS EPITHELIAL CELL,UR FEW /LPF (FEW)
--- NOTE | 2021-04-09 17:00 | NUR ---
Pt transferred to floor from ICU. Pt is confused - disoriented to place. Reorientation provided. Pupils PERRLA. All extremities weak. 1+ pulses throughout. HR is ST - rate in low 100s. No complaints of pain. VSS. Afebrile. Lungs clear. Stomach large and distended. Skin very jaundiced - 2RN skin check completed see note. 3+ edema BLE. Blood drawn from central line for lactic acid following protocol. Pt had BM that was diarrhea and incontinence of urine. Andrea care provided - applied barrier cream to andrea area that is excoriated. Partial linen change completed. Pt turned right. Warm blanket applied. No further needs at this time.
--- NOTE | 2021-04-09 17:28 | NUR ---
Transferred patient to PCU at 1700, on hospital bed, with all belongings, and tele monitor. Receiving nurse at bedside.
--- NOTE | 2021-04-09 18:48 | NUR ---
Patient in room PCU 3027. I have received report from Lori KO and had the opportunity to ask questions and assume patient care.
[2021-04-09] MEDS: diphenoxylate/atropine tablet (Lomotil) PO PRN (19:46)
[2021-04-10] MEDS: furosemide 40mg/4ml inj IV SCH ×2 (00:49→08:37)
[2021-04-10] MEDS: spironolactone 25 MG tablet NG SCH ×2 (00:49→08:45)
[2021-04-10 02:00] VITALS: BP 108/72
--- NOTE | 2021-04-10 06:03 | NUR ---
Patient in room PCU 3027. I have received report from Renaldo KO and had the opportunity to ask questions and assume patient care.
[2021-04-10 06:17] LABS: BASOPHILS # (AUTO) 0.1 X10'3 (0-0.2); BASOPHILS % (AUTO) 0.8 % (0-1); EOSINOPHILS # (AUTO) 0.1 X10'3 (0-0.9); EOSINOPHILS % (AUTO) 0.7 % (0-6); HEMATOCRIT 24.9 % (35.0-45.0); HEMOGLOBIN 8.5 g/dl (12.0-16.0); LYMPHOCYTES # (AUTO) 2.3 X10'3 (1.1-4.8); LYMPHOCYTES % (AUTO) 14.8 % (21-51); MEAN CORPUSCULAR HEMOGLOBIN 31.2 PG (27.0-31.0); MEAN CORPUSCULAR HGB CONC 34.2 g/dL (33.0-36.5); MEAN CORPUSCULAR VOLUME 91.3 FL (78-98); MEAN PLATELET VOLUME 7.6 FL (7.4-10.4); MONOCYTES # (AUTO) 0.9 X10'3 (0-0.9); MONOCYTES % (AUTO) 6.2 % (2-12); NEUTROPHILS # (AUTO) 11.8 X10'3 (1.8-7.7); NEUTROPHILS % (AUTO) 77.5 % (42-75); PLATELET COUNT 246 X10'3 (140-440); RED BLOOD COUNT 2.72 X10'6 (4.20-5.60); RED CELL DISTRIBUTION WIDTH 21.1 % (11.5-14.5); WHITE BLOOD COUNT 15.2 X10'3 (4.5-11.0)
[2021-04-10 06:25] LABS: PARTIAL THROMBOPLASTIN TIME 40 SECONDS (22-32)
[2021-04-10 06:28] LABS: ALANINE AMINOTRANSFERASE 37 U/L (12-78); ALBUMIN 1.8 G/DL (3.4-5.0); ALKALINE PHOSPHATASE 279 IU/L (46-116); ANION GAP 5 (8-16); BILIRUBIN,TOTAL 16.3 MG/DL (0.1-1.0); BLOOD UREA NITROGEN 18 MG/DL (7-18); CHLORIDE 101 MMOL/L (99-107); MAGNESIUM 1.6 MG/DL (1.5-2.4); SODIUM 135 MMOL/L (135-145); TOTAL CARBON DIOXIDE 29.5 MMOL/L (24-32)
[2021-04-10 06:29] LABS: ALBUMIN/GLOBULIN RATIO 0.4 (1.1-1.5); ASPARTATE AMINO TRANSFERASE 145 U/L (10-37); BUN/CREATININE RATIO 27.3 (6.6-38.0); CREATININE 0.66 MG/DL (0.40-0.90); GLUCOSE 104 MG/DL (70-104); PHOSPHORUS 3.1 MG/DL (2.3-4.5); POTASSIUM 3.3 MMOL/L (3.5-5.1); eGFR > 90 ML/MIN
[2021-04-10 07:24] VITALS: BP 151/98
[2021-04-10] MEDS: K, MAG and/or Phos replacement - Verify level? MC SCH (08:00)
[2021-04-10] MEDS: pantoprazole 40 MG vial IV SCH (08:37)
[2021-04-10] MEDS: levoTHYROXINE sod inj. 100mcg/5 ml vial IV SCH (08:37)
[2021-04-10] MEDS: folic acid 1mg tablet PO SCH (08:45)
[2021-04-10] MEDS: lactobacillus rhamnosus 10,000 MMU CELLS/CAPSULE NG SCH ×2 (08:45→20:43)
[2021-04-10] MEDS: MULTIVIT-MIN/FERROUS GLUCONATE 9 MG/15 ML LIQUID NG SCH (08:45)
[2021-04-10] MEDS: thiamine 100mg tablet PO SCH (08:45)
[2021-04-10] MEDS: POTASSIUM BICARB 20meq eff tab 20 MEQ TABLET.EFF NG PRN ×3 (08:46→20:57)
[2021-04-10] MEDS: lactose-reduced food (Ensure High Protein) 237ml bottle PO SCH ×3 (08:53→18:00)
[2021-04-10 08:57] LABS: ANISOCYTOSIS 3+; PLATELET ESTIMATE NORMAL; TOTAL CELLS COUNTED 100
--- NOTE | 2021-04-10 08:57 | NUR ---
Paged Dr. Tanner to inform about pt having positive blood cultures at 15 hrs. Will continue to monitor.
[2021-04-10 08:58] LABS: HYPOCHROMASIA 2+; POLYCHROMASIA FEW; TEAR DROP CELLS FEW
[2021-04-10 08:59] LABS: STOMATOCYTES 1+
[2021-04-10 09:01] LABS: SCHISTOCYTES FEW
[2021-04-10 11:00] VITALS: BP 118/70
[2021-04-10] MEDS: chloestyramine/aspartame 4gm packet CORPAK SCH ×2 (11:20→15:34)
--- NOTE | 2021-04-10 11:38 | NUR ---
Reassessment: TF has been discontinued and Corpak was removed. Pt s/p f/u BSS today with ST recs diet advancement to regular, previously on MM5 with thin liquids after BSS 04/09. Pt previously with average 25-50% PO intake not meeting estimated nutrient needs. Pending first meal since diet advancement and documentation of PO intake for today. Pt seen at bedside states she has been "eating like crazy" and reports 100% PO intake of breakfast this morning. Pt receiving Ensure High Protein TID documented with 100% PO intake of first three ONS down to 0-25% the following two. Pt reports she is drinking the ONS. RD encouraged PO intake and educated pt on the importance of protein intake and ONS for hepatic recovery. Pt verbalized understanding. Pt provided with alternative regular menu to provide additional food options and optimize PO intake. Pt denies food preferences at this time or food allergies. LBM 04/09 documented with diarrhea. Per solar lab technician pt reports diarrhea is normal following cholecystectomy. Pt provided with written and verbal diarrhea nutrition therapy education. Pt agrees to implement during admit. RD contact information provided and pt encouraged to reach out if needed. Noted that pt with cholestyramine available on med list however not given d/t not being available. Pt receiving PRN Lomotil. Will continue to follow. Recommendations: 1) Continue regular diet per ST recs 2) Ensure High Protein TID per MD request 3) Routine Thiamine, Folic, and MVM with Iron for EtOH hx 4) Bowel care per MD Addendum: 04/10/21 at [address] Amended: Links added.
--- NOTE | 2021-04-10 13:15 | NUR ---
Spoke with Dr. Fenton, family and pt regarding care. New orders obtained and carried out. RIJ discontinued. No new order for IV access at this time. All medications and new medications are PO. PT eval orders input and spoke with PT to work with pt. Pt and family voiced wanting to go home and working towards that goal. Will continue to monitor pt.
[2021-04-10 15:00] VITALS: BP 113/51
[2021-04-10 19:00] VITALS: BP 118/76
[2021-04-10] MEDS ORDERED: furosemide 40mg tablet PO SCH (20:00)
[2021-04-10] MEDS: linezolid 600mg tablet PO SCH (20:45)
[2021-04-10] MEDS: furosemide 20MG tablet PO SCH (20:45)
[2021-04-10] MEDS: rifaximin 550mg tablet PO SCH (20:45)
[2021-04-10] MEDS: spironolactone 25 MG tablet PO SCH (20:58)
[2021-04-10] MEDS ORDERED: famotidine 20mg tablet PO SCH (21:00)
[2021-04-11 03:00] VITALS: BP 119/92
--- NOTE | 2021-04-11 06:13 | NUR ---
Patient in room PCU 3027. I have received report from Kelsey KO and had the opportunity to ask questions and assume patient care.
[2021-04-11 07:00] VITALS: BP 112/71
[2021-04-11] MEDS ORDERED: levoTHYROXINE 100mcg tablet PO SCH (07:00)
[2021-04-11] MEDS: folic acid 1mg tablet PO SCH (07:37)
[2021-04-11] MEDS: linezolid 600mg tablet PO SCH (07:37)
[2021-04-11] MEDS: MULTIVIT-MIN/FERROUS GLUCONATE 9 MG/15 ML LIQUID NG SCH (07:37)
[2021-04-11] MEDS: lactobacillus rhamnosus 10,000 MMU CELLS/CAPSULE NG SCH (07:37)
[2021-04-11] MEDS: thiamine 100mg tablet PO SCH (07:38)
[2021-04-11] MEDS: spironolactone 25 MG tablet PO SCH (07:38)
[2021-04-11] MEDS: furosemide 20MG tablet PO SCH (07:38)
[2021-04-11] MEDS: rifaximin 550mg tablet PO SCH (07:38)
[2021-04-11] MEDS: POTASSIUM BICARB 20meq eff tab 20 MEQ TABLET.EFF NG PRN (07:42)
[2021-04-11] MEDS: lactose-reduced food (Ensure High Protein) 237ml bottle PO SCH (07:43)
[2021-04-11 07:49] LABS: BASOPHILS # (AUTO) 0.1 X10'3 (0-0.2); BASOPHILS % (AUTO) 0.6 % (0-1); EOSINOPHILS # (AUTO) 0.1 X10'3 (0-0.9); EOSINOPHILS % (AUTO) 0.5 % (0-6); HEMATOCRIT 27.1 % (35.0-45.0); LYMPHOCYTES # (AUTO) 2.6 X10'3 (1.1-4.8); LYMPHOCYTES % (AUTO) 18.4 % (21-51); MEAN CORPUSCULAR HEMOGLOBIN 30.1 PG (27.0-31.0); MEAN CORPUSCULAR HGB CONC 33.1 g/dL (33.0-36.5); MEAN CORPUSCULAR VOLUME 90.9 FL (78-98); MEAN PLATELET VOLUME 7.6 FL (7.4-10.4); MONOCYTES % (AUTO) 7.4 % (2-12); NEUTROPHILS # (AUTO) 10.1 X10'3 (1.8-7.7); NEUTROPHILS % (AUTO) 73.1 % (42-75); PLATELET COUNT 246 X10'3 (140-440); RED BLOOD COUNT 2.98 X10'6 (4.20-5.60); RED CELL DISTRIBUTION WIDTH 20.4 % (11.5-14.5); WHITE BLOOD COUNT 13.9 X10'3 (4.5-11.0)
[2021-04-11 07:58] LABS: PARTIAL THROMBOPLASTIN TIME 40 SECONDS (22-32)
[2021-04-11] MEDS: K, MAG and/or Phos replacement - Verify level? MC SCH (08:00)
[2021-04-11 08:10] LABS: ALANINE AMINOTRANSFERASE 31 U/L (12-78); ALBUMIN 1.9 G/DL (3.4-5.0); ALKALINE PHOSPHATASE 294 IU/L (46-116); ANION GAP 9 (8-16); BILIRUBIN,TOTAL 17.1 MG/DL (0.1-1.0); BLOOD UREA NITROGEN 18 MG/DL (7-18); CALCIUM 8.6 MG/DL (8.5-10.1); CHLORIDE 99 MMOL/L (99-107); MAGNESIUM 1.6 MG/DL (1.5-2.4); SODIUM 137 MMOL/L (135-145)
[2021-04-11 08:11] LABS: ALBUMIN/GLOBULIN RATIO 0.4 (1.1-1.5); ASPARTATE AMINO TRANSFERASE 138 U/L (10-37); BUN/CREATININE RATIO 24.3 (6.6-38.0); CREATININE 0.74 MG/DL (0.40-0.90); GLUCOSE 82 MG/DL (70-104); POTASSIUM 3.7 MMOL/L (3.5-5.1); TOTAL PROTEIN 6.3 G/DL (6.4-8.2); eGFR 85 ML/MIN
--- NOTE | 2021-04-11 09:30 | NUR ---
Dr. Fenton at bedside with patient and nurse. Dr. Fenton wanting to send pt home with the expectation of following through with DC orders. No drinking or alcohol usage allowed and to follow all directions provided. Pt anxious to go home and is strict on leaving. Dr. Fenton will follow through with Dr. Tanner regarding DC. Dr. Tanner ok to DC home as well and follow up with call in to the pharmacy for all meds and follow up care. Celia case management involved in contacting Dr. Zapata and the transplant of liver and appts. We will continue to monitor.
[2021-04-11 09:55] LABS: TOTAL CELLS COUNTED 100
[2021-04-11 09:56] LABS: ANISOCYTOSIS 3+; HYPOCHROMASIA 2+; PLATELET ESTIMATE NORMAL; POLYCHROMASIA 1+
[2021-04-11 09:57] LABS: STOMATOCYTES 2+
[2021-04-11] MEDS ORDERED: LINE600T14 PO (10:12)
[2021-04-11] MEDS ORDERED: LEVO100T9 PO (10:12)
[2021-04-11] MEDS ORDERED: SPIR25TA PO (10:12)
[2021-04-11] MEDS ORDERED: MULT9LIQ7 NG (10:12)
[2021-04-11] MEDS ORDERED: RIFA550T PO (10:12)
[2021-04-11] MEDS ORDERED: QUELT CORPAK (10:12)
[2021-04-11 11:00] VITALS: BP 127/73
[2021-04-11] MEDS: chloestyramine/aspartame 4gm packet CORPAK SCH (11:24)
[2021-04-11] MEDS: diphenoxylate/atropine tablet (Lomotil) PO PRN (11:26)
--- NOTE | 2021-04-11 14:02 | NUR ---
Dr. Tanner called to be notified of pts diaherra and inability to walk. aware. No new orders.Dr. Tanner said family can connect with Dr. Mortensen regarding appt.
--- NOTE | 2021-04-11 14:45 | NUR ---
Called Pharmacy and spoke to Margaret for call in meds
--- NOTE | 2021-04-11 14:50 | NUR ---
Paged Dr. Tanner PAGER ID: [phone] MESSAGE: Re: Magdy Adams [id number]. Need clarification on meds and diagnosis please and Thank you. Veronica KO [phone] Insurance will not approve medications will need diagnostic code and reasoning
--- NOTE | 2021-04-11 15:28 | NUR ---
Patient Ok to discharge per MD orders. Tele removed and returned, no PIV to be removed. Patient was accompanied by mother Anila. All discharge instructions were gone over and educated on. Medications were called into pharmacy. Patients items were collected and sent with patient. Patient was able to walk 300+ feet without help and dress self. Patient was escorted via wheelchair by Nurse to the front main lobby where the mother Anila met patient and transferred into car to go home. Patient and family member appeared to be happy and grateful.
--- NOTE | 2021-04-11 15:50 | NUR ---
Called Anila to give her Dr. Maldonado number [phone] .This is to schedule appt. Celia will f/u as well on Wednesday. I will call Anila smith I leave. Called Dr. Fenton for diagnosis code but was unable to obtain. Celia will obtain code and call me to approve medication Xifaxan at pharmacy for patient.
--- NOTE | 2021-04-11 16:01 | NUR ---
Called Pharmacy [phone] and spoke with Margaret and gave diagnosis code K70.40, reasoning Lactulose ineffective
--- NOTE | 2021-04-11 16:32 | NUR ---
Anila, pts mother, called back. I have directly gave Anila the number to Dr. Maldonado scheduling line [phone] as well as [facility] line number to help coordinate care. Anila verbalized and read back the number and will continue to try to schedule an appt for pt. Again, I have called pharmacy and gave a diagnosis code of K70.40. To help identify coverage of medications.
== END 2021-04-11 15:28 | disposition home or self-care (01) | DRG 279 ==
LOC: UNDOADMIN 12:59 → CICU 2S 12:59 → PCU 3S 04-09 16:55
PROVIDERS: ADMIT Internal Medicine Critical Care Medicine; ATTEND Internal Medicine Critical Care Medicine
PROC: 0W9G3ZZ Drainage of Peritoneal Cavity, Percutaneous Approach (ICD-10-PCS; principal; 2021-04-07)
PROC: B32T1ZZ Computerized Tomography (CT Scan) of Left Pulmonary Artery using Low Osmolar Contrast (ICD-10-PCS; 2021-04-07)
PROC: B32S1ZZ Computerized Tomography (CT Scan) of Right Pulmonary Artery using Low Osmolar Contrast (ICD-10-PCS; 2021-04-07)
DX: K72.90 Hepatic failure, unspecified without coma (principal); K76.7 Hepatorenal syndrome; E46 Unspecified protein-calorie malnutrition; J90 Pleural effusion, not elsewhere classified; R78.81 Bacteremia; D68.4 Acquired coagulation factor deficiency; E87.70 Fluid overload, unspecified; R18.8 Other ascites; D64.9 Anemia, unspecified; E03.9 Hypothyroidism, unspecified; E87.6 Hypokalemia; Z66 Do not resuscitate; Z68.34 Body mass index [BMI] 34.0-34.9, adult
CPT/HCPCS: 36415; 36600; 71045; 71260; 74018; 74177; 76705; 80048; 80053; 81001; 82140; 82803; 82948; 83605; 83735; 83880; 84100; 84132; 84134; 84443; 84540; 85007; 85008; 85018; 85025; 85610; 85730; 87040; 87077; 87186; 92508; 92616; 93005; 94660; 94760; 97116; 97161; 97530; C9113; G0378; J0692; J1630; J1940; J2060; J3360; J3411; J3475; J3480; J3490; J7040; J7060; P9047; Q9963; Q9967

== ENCOUNTER 2023-07-02 17:08 | Emergency (ER) | payer MEDICAID ==
[~2023-07-02] VITALS: Ht 162.6 cm; Wt 71.4 kg
[~2023-07-02 17:08] MED LIST: LACT10SO78 PO; LEVO100T9 PO; LINE600T14 PO; MULT9LIQ7 NG; QUELT CORPAK; RIFA550T PO; SPIR25TA PO
[2023-07-02 17:11] VITALS: BP 104/78; PULSE 102; RESP 18; TEMP 98.2; O2SAT 100
== END 2023-07-02 18:56 | disposition left against medical advice (07) ==
LOC: ER 17:09
DX: N93.9 Abnormal uterine and vaginal bleeding, unspecified (principal); R10.30 Lower abdominal pain, unspecified; Z53.21 Procedure and treatment not carried out due to patient leaving prior to being seen by health care provider
CPT/HCPCS: 99281